=== PATIENT | male | born 1955 ===

== ENCOUNTER 2019-02-19 12:17 | Outpatient (CLI) | payer SELFPAY ==
[2019-02-19] MEDS ORDERED: IOVERSOL 320 100 ML VIAL IVP ONE ×2 (13:24→16:30)
--- NOTE | 2019-02-20 16:48 | CT Report ---
Reason: MALIGNANT NEOPLASM OF COLON, UNSPECIFIED Procedure Date: 02/19/2019 Accession Number: [id number] / [id number] Procedure: CT - Abdomen/Pelvis W CPT Code: FULL RESULT: EXAM: CT ABDOMEN AND PELVIS EXAM DATE: 02/19/2019 01:09 PM. CLINICAL HISTORY: MALIGNANT NEOPLASM OF COLON, UNSPECIFIED. COMPARISONS: None. TECHNIQUE: Routine helical CT imaging was performed through the abdomen and pelvis. IV contrast: OPTI 320 100ML. Enteric contrast: No. Reconstructions: Coronal and sagittal. In accordance with CT protocol optimization, one or more of the following dose reduction techniques were utilized for this exam: automated exposure control, adjustment of mA and/or KV based on patient size, or use of iterative reconstructive technique. FINDINGS: Lung Bases: Partial visualization of pulmonary metastases in the form of cannonball nodules the largest of which is visualized in the right infrahilar region and measures approximately 2 cm. Liver: There is hepatomegaly with essentially the entire right hepatic lobe replaced by tumor burden. In segment 2, a lobulated 4.1 x 2.4 cm hypodense lesion with suggestion of thin internal septations is technically indeterminate. Tumor burden measures at least 30 x 17 cm as seen coronally on image 24 series 5. Gallbladder/Bile Ducts: Unremarkable. Spleen: Mild splenomegaly Pancreas: Normal. Adrenal Glands: Normal. 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 No hydronephrosis. Peritoneal Cavity/Bowel: Primary mass is likely seen on image 93 series 3 in the distal sigmoid. There is no bowel obstruction, free air or free fluid. There is no definite lymphadenopathy by size criteria. Pelvic Organs: There are prominent bilateral inguinal nodes which do not meet size criteria. Vasculature: No aneurysms or other significant abnormality. Bones: No aggressive osseous lesions. Other: None. IMPRESSION: Dominant metastatic disease to liver with pulmonary metastases. Despite pulmonary metastases, overwhelming hepatic metastatic burden radiologically strongly suggests that the patient's quality of life as well as life expectancy at length to preservation of hepatic function and locoregional tumor control. If this is consistent with the clinical picture: Given the distribution of metastatic disease having replaced the right lobe of the liver essentially entirely with relative or near complete sparing of the left hepatic lobe, consider interventional oncology consultation for consideration of palliative selective intra-arterial radioembolization. [facility]
== END 2019-02-19 12:18 | disposition home or self-care (01) ==
LOC: DI 12:17
PROVIDERS: ATTEND Internal Medicine
DX: C18.9 Malignant neoplasm of colon, unspecified (principal); C78.7 Secondary malignant neoplasm of liver and intrahepatic bile duct; C78.01 Secondary malignant neoplasm of right lung
CPT/HCPCS: 74177; Q9967